=== PATIENT | male | born 1980 | race African-American/Black ===

== ENCOUNTER 2018-07-20 18:08 | Emergency (ER) | payer MEDICAID ==
[2018-07-20] MEDS ORDERED: SODIUM CHLORIDE 0.9% 1L BAG IV* (18:42)
[2018-07-20 19:14] LABS: ADD MAN DIFF? NO
[2018-07-20] MEDS: morphine 4 MG/ML VIAL IV (19:17)
[2018-07-20] MEDS: SOD CHLORIDE 0.9% 1,000 ML IV (19:17)
[2018-07-20] MEDS: ONDANSETRON 4 MG INJ IV (19:17)
[2018-07-20 19:19] LABS: BASOPHILS % 0.4 % (0.0-2.0); EOSINOPHILS # 0.1 10^3/ul (0.0-0.5); HEMATOCRIT 40.4 % (42.0-52.0); HEMOGLOBIN 13.2 g/dl (14.0-18.0); LYMPHOCYTES # 1.8 10^3/ul (0.8-2.9); MEAN CORPUSCULAR HEMOGLOBIN 28.3 pg (29.0-33.0); MEAN CORPUSCULAR HGB CONC 32.7 g/dl (32.0-37.0); MEAN CORPUSCULAR VOLUME 86.7 fl (82.0-101.0); MEAN PLATELET VOLUME 9.9 fl (7.4-10.4); MONOCYTE # 0.4 10^3/ul (0.3-0.9); MONOCYTES % 6.7 % (0.0-11.0); NEUTROPHILS % 56.7 % (39.0-77.0); PLATELET COUNT 333 10^3/UL (140-415); RED BLOOD COUNT 4.66 10^6/ul (4.70-6.10)
[2018-07-20 19:19] LABS: WHITE BLOOD COUNT 5.3 10^3/ul (4.8-10.8)
[2018-07-20 19:34] LABS: ALANINE AMINOTRANSFERASE 117 IU/L (13-69); ALBUMIN 3.9 g/dl (3.3-4.9); ALBUMIN/GLOBULIN RATIO 1.02; ALKALINE PHOSPHATASE 145 IU/L (42-121); ANION GAP 12 (5-13); ASPARTATE AMINO TRANSFERASE 68 IU/L (15-46); BILIRUBIN,INDIRECT 0.5 mg/dl (0-1.1); BILIRUBIN,TOTAL 0.5 mg/dl (0.2-1.3); BLOOD UREA NITROGEN 21 mg/dl (7-20); CALCIUM 9.4 mg/dl (8.4-10.2); CARBON DIOXIDE 26 mmol/L (21-31); CHLORIDE 99 mmol/L (97-110); CREATININE 0.81 mg/dl (0.61-1.24); Estimated GFR > 60 mL/min (>60); GLUCOSE 282 mg/dl (70-220); LIPASE 84 U/L (23-300); POTASSIUM 4.5 mmol/L (3.5-5.1); SODIUM 137 mmol/L (135-144); TOTAL PROTEIN 7.7 g/dl (6.1-8.1)
[2018-07-20 21:00] LABS: ADD UMIC YES; UR ASCORBIC ACID NEGATIVE (NEGATIVE); UR BILIRUBIN (Dip) NEGATIVE (NEGATIVE); UR BLOOD (Dip) 2+ mg/dL (NEGATIVE); UR CLARITY CLEAR (CLEAR); UR COLOR YELLOW (YELLOW); UR GLUCOSE (Dip) 3+ mg/dL (NEGATIVE); UR KETONES (Dip) 1+ mg/dL (NEGATIVE); UR LEUKOCYTE ESTERASE (Dip) NEGATIVE Leu/ul (NEGATIVE); UR MUCUS FEW /HPF (NONE SEEN); UR NITRITE (Dip) NEGATIVE (NEGATIVE); UR RBC 2 /HPF (0-5); UR TOTAL PROTEIN (Dip) 3+ mg/dl (NEGATIVE); UR UROBILINOGEN (Dip) NEGATIVE (NEGATIVE); UR WBC 1 /HPF (0-5)
[2018-07-20] MEDS: FAMOTIDINE 20 MG INJ IV (21:06)
[2018-07-20] MEDS: LIDOCAINE/MYLANTA 40 ML BTL PO (21:06)
[2018-07-20] MEDS: morphine (ER) 15 MG TAB PO (21:53)
== END 2018-07-20 21:59 | disposition home or self-care (01) ==
LOC: FTE 18:08
DX: E11.65 Type 2 diabetes mellitus with hyperglycemia (principal)
CPT/HCPCS: 36415; 80053; 81001; 83690; 85025; 96361; 96374; 96375; 99284-25

== ENCOUNTER 2018-07-21 01:28 | Emergency (ER) | payer OTHER, MEDICAID ==
[2018-07-21] MEDS: HYDROCODONE/APAP (10/325) TAB PO (05:04)
== END 2018-07-21 08:15 | disposition home or self-care (01) ==
LOC: E/R 01:28
DX: F41.9 Anxiety disorder, unspecified (principal); E11.9 Type 2 diabetes mellitus without complications; Z79.4 Long term (current) use of insulin
CPT/HCPCS: 99283; Z7610

== ENCOUNTER 2018-07-21 08:43 | Emergency (ER) | payer OTHER, MEDICAID | END 2018-07-21 10:41 | disposition left against medical advice (07) | LOC: E/R 08:43 | DX: Z53.21 Procedure and treatment not carried out due to patient leaving prior to being seen by health care provider (principal) ==